=== PATIENT | male | born 1940 | race Caucasian/White ===

== ENCOUNTER 2017-01-10 07:21 | Day surgery (SDC) | payer MEDICARE, OTHER ==
[2017-01-10] VITALS (7 sets, daily range): BP systolic 121–147; BP diastolic 67–80; PULSE 68–89; RESP 12–16; O2SAT 95–98
[~2017-01-10] VITALS: Ht 179.1 cm; Wt 84.9 kg
--- NOTE | 2017-01-10 06:48 | PCM.HPANE ---
Patient Data Surgeon Admitting Provider: Attending Provider:Karlene Mars MD Primary Care Physician:Cipriano Israel MD Other Provider:Renata Riveroingham Anesthesia Reason for Visit Right Hydrocele Ht/WT & BMI Height (Feet): 5 Height (Inches): 10.5 Weight (Kilograms): 84.46 Body Mass Index 26.00 Allergies Coded Allergies: No Known Allergies (Unverified Allergy, Unknown, 12/26/14) Past Anesthesia History Anesthesia History: Denies:: Anesthesia Reactions Diabetes History Hx Diabetes?: No MRSA MRSA: No Medications Blood Thinner: Plavix Hypertension Medication: Yes Home Meds Incl Beta Jose Rafael: No Reported Medications [reishi] No Conflict Check1 Tablet PO DAILY 01/10/17 Cyclosporine (Restasis)1 Each Droperette1 Drop AFFECT_EYE BID #60 01/10/17 Multivit-Min/FA/Lycopen/Lutein (Men 50 Plus Multivitamin Tab)300 Mcg-600 Mcg- 300 Mcg Tablet1 Each PO DAILY 01/07/17 [ascorbic acid] No Conflict [id number] Mg DAILY 01/07/17 Clopidogrel Bisulfate (Plavix)75 Mg Ghdmxj94 Mg PO OCC Ref 0 03/03/16 Tacrolimus (Protopic)100 Gm Oint...g.100 Gm TP BID 09/23/15 Saw Ashley Fruit (Saw Ashley)450 Mg Ozhlhnf415 Mg PO BID 05/23/15 Betamethasone/Propylene Glyc (Betamethasone Dp Aug 0.05% Crm)15 Gm Cream..g.15 Gm TP DAILY 12/13/14 [place]-3 Fatty Acids/Fish Oil ([place] 3 Fish Oil Softgel)1 Each Capsule.dr1 Each PO DAILY 12/13/14 Hydrochlorothiazide 12.5 Mg Dmrzee04 Mg PO DAILY Ref 0 12/13/14 Amlodipine (Norvasc)5 Mg Tablet5 Mg PO DAILY Ref 0 12/13/14 Zolpidem (Ambien)10 Mg Tab10 Mg PO HS For Insomnia Ref 0 12/13/14 Rosuvastatin Calcium (Crestor)10 Mg Vcymrr71 Mg PO OCC Ref 0 12/13/14 Discontinued Reported Medications [reshi] No Conflict Check1 Tablet PO DAILY 01/10/17 Ascorbic Acid 500 Mg Idjbrn427 Mg PO DAILY Ref 0 12/13/14 Mv,Minerals/FA/Lycopene/Ginkgo (Men's 50+ Daily Formula Tablet)1 Each Tablet1 Each PO DAILY 12/13/14 History History of ENT Problems?: Yes HEENT History: Positive for:: 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) Other HEENT Pertinent History: hx of right cervical lymph node resection- melanoma Hx of Heart Problems?: Yes Cardiovascular History: Positive for:: Hypertension 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) Denies:: Chest Pain Heart Murmur Pacemaker Rheumatic Fever Hx of Respiratory Problem?: No Respiratory History: Denies:: Asthma COPD Dyspnea Emphysema Hemoptysis Oxygen Administration Tuberculosis Use of C-PAP Machine Hx Neurologic Problems?: No Neurological History: Denies:: Alzheimer's Disease CVA Dementia Dizziness Headaches Seizures Hx of GI Problems?: No Gastrointestinal History: Denies:: Cirrhosis Diverticulitis Gastroesphageal Reflux Heartburn Hepatitis Rectal Bleeding Hx of Problems?: Yes Genitourinary History: Denies:: HX of Hemodialysis Kidney Stones Urinary Tract Infection Other Pertinent History: 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 Male Hx: Positive for:: Scrotal Mass (right hydrocele current admission problem) Denies:: Prostate Problems Hx Musculoskeletal Problems?: No Musculoskeletal History: Denies:: Back Injury Joint Replacement Musculoskeletal Trauma Hx of Psycho/Social Problems?: No Psycho Social History: Denies:: Anxiety Bipolar Disorder Hx Depression Hx Surgeries?: Yes (cataracts, cervical lymph node, right nephrectomy, ) Hx Any Other Health Problems?: Yes Other History: Positive for:: Cancer (melanoma x 2, renal clear cell) Hospitalization Denies:: Endocrine Disease Thyroid Disease History Blood Transfusions: Denies:: Blood Transfusions (Would be willing to receive "under certain circumstances") Hx Diabetes: No Hx Alcohol Use: Yes (Wine )Hx Substance Use: No Smoking Status: Never Smoker Stop/Bang S-Snoring: Do You Snore Loudly: No T-Tired: feel tired, fatigued: No O-Obsered: Observed not breath: No P-Blood Pressure: treated: Yes B- Body Mass Index > 35 kg/m2: No A- Age over 50: Yes N- Neck Large Circumference: No G- Gender Male: Yes TRISTAN Total Score: 3 Risk Assessment Category Category 1A: Patient has history of documented sleep apnea, and HAS NOT received any narcotic, sedative or anesthesia administration during this stay. Category 1B: Patient has history of documented sleep apnea, and HAS received any narcotic , sedative or anesthesia administration during this stay Category 2: Patient has SUSPECTED Obstructive Sleep Apnea, and HAS received any narcotic , sedative or anesthesia administration during this stay. Category 3: Patient has SUSPECTED Obstructive Sleep Apnea and HAS NOT received narcotic, sedative or anesthesia administration during this stay. Category 4: Outpatient in Procedural Areas with known sleep apnea or who screen positive for High Risk via the STOP/BANG questionnaire. Exam Exam General Appearance: Alert, Oriented X3, Cooperative, No Acute Distress HEENT/AIRWAY: MP 2, Neck Movement (from, obvious Right deformity ( lateral concavity ) secondry to surgery for cancer), Mouth Opening (Right facial drooping, moderate mouth opening, ) Lungs: Clear to Auscultation, Normal Air Movement Heart: Exam Unremarkable Additional Information Pt denies any respiratory difficulty, stridor or SOB. Plan Impression Patient chart reviewed, patient interviewed and anesthestic plan with risks, benefits, and alternatives discussed, and informed consent obtained. ASA Physical Status: ASA2 Mod Systemic Disease Anesthetic Plan: GA Bene/Risks/Altern/Consents: Yes HP Complete Prior to Induction: Yes Wing Strong MD Jan 10, 2017 06:48
[~2017-01-10 07:21] MED LIST: AMLO-39 PO; BETA15CR38 TP; CLOP75TA3 PO; CREST10T PO; CeFAZolin Inj 2 GM in IV Premix 1 EACH IV ONE; HYDR12.55 PO; Lactated Ringer's 1,000 ML IV ONE; MULT-1100 PO; OMEG1CAP25 PO; SAW450CA4 PO; TACR100O2 TP; ZLP10T PO; ascorbic acid
[2017-01-10] MEDS ORDERED: Propofol 10,000 mCg/mL 20 mL Inj ONE (07:22)
[2017-01-10] MEDS ORDERED: Ondansetron 2 mg/mL 2 mL Inj ONE (07:22)
[2017-01-10] MEDS ORDERED: fentaNYL-PF 50 mCg/mL 2 mL Inj ONE (07:22)
[2017-01-10] MEDS ORDERED: [UNRECOGNIZED DRUG - OTHER] PO (08:09)
[2017-01-10] MEDS ORDERED: CYCL1DRO AFFECT_EYE (08:09)
[2017-01-10] MEDS ORDERED: reishi PO (08:11)
[2017-01-10] MEDS ORDERED: Lactated Ringer's 500 ML IV PRN (10:41)
[2017-01-10] MEDS ORDERED: Lactated Ringer's 1,000 ML IV SCH (10:41)
[2017-01-10] MEDS ORDERED: Atropine 0.4 mg/mL Inj IVPUSH PRN (10:45)
[2017-01-10] MEDS ORDERED: hydrALAZINE 20 mg/mL Inj IVPUSH PRN (10:45)
[2017-01-10] MEDS ORDERED: Ondansetron 2 mg/mL 2 mL Inj IVPUSH PRN (10:45)
[2017-01-10] MEDS ORDERED: Labetalol 5 mg/mL 4 mL Inj IV PRN (10:45)
[2017-01-10] MEDS ORDERED: EPHEDrine Sulfate 50 mg/mL Inj IVPUSH PRN (10:45)
[2017-01-10] MEDS ORDERED: HYDROmorphone 1 mg/mL Inj IVPUSH PRN (10:45)
[2017-01-10] MEDS ORDERED: Phenylephrine 10,000 mCg/mL Inj IVPUSH PRN (10:45)
[2017-01-10] MEDS ORDERED: fentaNYL-PF 50 mCg/mL 2 mL Inj IVPUSH PRN (10:45)
[2017-01-10] MEDS ORDERED: Dexamethasone 4 mg/mL Inj IVPUSH PRN (10:45)
[2017-01-10] MEDS ORDERED: Bupivacaine-MPF 0.5% 30 mL Inj INFILTRATE ONE (11:00)
[2017-01-10] MEDS ORDERED: HYDROcodone-APAP 5-325 mg Tablet PO PRN (11:40)
--- NOTE | 2017-01-10 12:39 | PCM.ANEP1 ---
Post Anesthesia Phase 1 PACU Phase 1 Assessment Vital Signs Vital Signs Date Time Temp Pulse Resp B/P Pulse Ox O2 Delivery O2 Flow Rate FiO2 01/10/17 12:11 79 16 147/80 Room Air 01/10/17 12:01 36.1 74 16 131/79 98 Room Air 01/10/17 11:50 68 12 122/70 95 Room Air 01/10/17 11:40 79 12 122/67 95 Room Air 01/10/17 11:35 82 13 126/74 95 Room Air 01/10/17 11:27 37.0 89 12 121/68 95 Room Air 01/10/17 07:46 36.2 74 14 132/74 97 Room Air Anesthetic Administered: GA Level of Alertness: Awake, talking MCCULLOUGH's with Equal Strength: Yes Pain: No Nausea or Vomiting: No Oxygen Delivery: Room Air Lungs: Normal Air Movement Wing Strong MD Jan 10, 2017 12:39
--- NOTE | 2017-01-10 13:07 | PCM.ANEP2 ---
Post Anesthesia Evaluation ASA/CMS Post Anesthesia VS in Patient's Normal Range?: Yes Resp Stable; Airway Patent?: Yes CV Function & Hydration Stable: Yes Mental Status Recovered?: Yes Pain control Satisfactory?: Yes N/V Control Satisfactory?: Yes Wing Strong MD Jan 10, 2017 13:07
--- NOTE | 2017-01-10 22:52 | OP ---
[address] [address] OPERATIVE REPORT PATIENT: WINDY UP : 1940 MR#: [id number] ADMIT: 01/10/2017 JOB ID: [id number] DATE OF SURGERY: 01/10/2017 PREOPERATIVE DIAGNOSIS(ES): Right hydrocele. POSTOPERATIVE DIAGNOSIS(ES): Right hydrocele. PROCEDURE PERFORMED: Right hydrocelectomy. SURGEON: Karlene Mars MD. BEST WORKER: None. FINDINGS: A 100 mL volume right hydrocele sac. ANESTHESIA: General. ESTIMATED BLOOD LOSS: Less than 5 mL. DRAINS: None. SPECIMEN: Right hydrocele sac. COMPLICATIONS: None. CONDITION: Stable. INDICATION: The patient is a 76-year-old man who wishes to have a right hydrocelectomy. DESCRIPTION OF PROCEDURE: After informed consent was obtained, the patient was taken to the operating room. A time-out was performed, identifying correct patient, surgical site, and procedure. General anesthesia was smoothly induced. He was placed in the in the supine position. All pressure points were identified and appropriately padded. His genitals were then prepped and draped in usual sterile fashion. An approximate 3 cm incision was made down the midline raphae with a 15 blade scalpel. Bovie electrocautery was used to incise dartos fascia. The hydrocele sac was delivered through the incision and the layers were dissected away. The sac was then incised with a 15 blade and the serous fluid removed. The sac was then incised ventrally at the mid portion with Bovie electrocautery. The sac was then incised away from the testicle leaving a 1 cm margin. The sac was then oversewn with 3-0 chromic in running fashion. Spot cautery was used for any small ooze. The testicle was then replaced in orthotopic position. Dartos fascia was then closed with 3-0 chromic in running fashion. The skin was then closed with 3-0 chromic in running locking fashion. Bacitracin ointment was placed over it. Kerlix, fluff gauze, and scrotal support was placed to the patient's genitals and buttocks. He was then reversed from general anesthesia and taken to the PACU in good and stable condition. [facility]ALS[facility]
--- NOTE | 2017-01-12 11:03 | PATH ---
SURGICAL PATHOLOGY Attending Physician:Karlene Mars, CASE STATUS: Signed Out PATIENT NAME: WINDY UP PID: [id number] : 1940 DATE COLLECTED:01/10/2017 20:12 SPECIMEN: Hydrocele CLINICAL HISTORY: RIGHT HYDROCELE 1). RIGHT HYDROCELE FINAL DIAGNOSIS: 1.RIGHT HYDROCELE SAC: HYDROCELE SAC. ICD10 CODE N43.3 GROSS DESCRIPTION: Received in formalin, labeled with the patient's name and "right hydrocele" are two fragments of alicea-miguel tissue ranging in size from 5.0 x 2.0 x 0.5 cm to 5.0 x 2.5 x 0.5 cm. One fragment is inked blue and the other is inked orange. Nurse Rn Bsn sections of each are submitted in cassette 1A. ([id number]) MICRO DESCRIPTION: See diagnosis. ICD-9 CODES: CPT CODES: 1: 37075 Electronically Signed Out Carl Tian MD [facility] [address], [place] [address] Technical component performed at [facility], [facility] [address], [place], [address]
== END 2017-01-10 23:59 | disposition home or self-care (01) ==
LOC: SAS 07:21
PROVIDERS: ATTEND Urology
DX: N43.3 Hydrocele, unspecified (principal); I10 Essential (primary) hypertension; I80.9 Phlebitis and thrombophlebitis of unspecified site; Z79.02 Long term (current) use of antithrombotics/antiplatelets; Z87.442 Personal history of urinary calculi; Z85.528 Personal history of other malignant neoplasm of kidney; Z85.828 Personal history of other malignant neoplasm of skin
CPT/HCPCS: 55040; J0690; J2405; J3010; J7120